=== PATIENT | male | born 1935 | race Caucasian/White ===

== ENCOUNTER → 2023-10-11 12:25 | Outpatient (REF) | payer MEDICARE, BC, SELFPAY ==
[2023-10-11 15:11] LABS: % Basophils 0.6 % (0-2); % Eosinophils 2.5 % (0-6); % Immature Granulocytes 0.2 % (0-0.5); % Lymphocytes 8.3 % (20.5-51.1); % Monocytes 12.5 % (1.7-9.3); % Neutrophils 75.9 % (42.2-75.2); Absolute Eosinophils 0.1 10^3/uL (0-0.7); Absolute Lymphocytes 0.4 10^3/uL (1.2-3.4); Absolute Monocytes 0.6 10^3/uL (0.1-0.6); Absolute Neutrophils 3.6 10^3/uL (1.4-6.5); Hematocrit 31.1 % (39.0-52.0); Hemoglobin 10.9 g/dL (13.0-18.0); Mean Corpuscular Hgb 35.3 pg (27.0-31.0); Mean Corpuscular Volume 100.6 fL (80.0-94.0); Mean Platelet Volume 11.9 fL (7.4-10.4); Nucleated Red Blood Cells % 0 % (-); Platelet Count 124 10^3/uL (130-400); Red Blood Cell Count 3.09 10^6/uL (4.70-6.10); Red Cell Dist. Width 13.4 % (11.5-14.5); White Blood Cell Count 4.8 10^3/uL (4.8-10.8)
[2023-10-11 15:14] LABS: ALT (SGPT) 13 U/L (0-50); AST (SGOT) 27 U/L (17-59); Albumin 3.6 g/dl (3.5-5.0); Alkaline Phosphatase 109 U/L (38-126); Blood Urea Nitrogen 24 mg/dl (9-20); Calcium 8.8 mg/dl (8.4-10.2); Carbon Dioxide 29 mmol/L (22-30); Chloride 92 mmol/L (98-107); Glucose 90 mg/dl (70-99); Potassium 4.7 mmol/L (3.5-5.1); Sodium 126 mmol/L (135-145); Total Bilirubin 0.6 mg/dl (0.2-1.3); Total Protein 5.7 g/dl (6.3-8.2); eGFR > 60.00
[2023-10-11 15:23] LABS: NT-proBNP 1290 pg/ml
[2023-10-11 15:28] LABS: FSH 6.9 mIU/ml (1.55-9.74); Prolactin 12.4 ng/ml (3.7-17.9)
[2023-10-11 16:19] LABS: Folate > 20.0 ng/ml (2.76-20); Vitamin B12 847 pg/ml (239-931)
[2023-10-14 01:50] LABS: % Free Testosterone 0.9 % (1.6-2.9); Free Testosterone 36 pg/mL (47-244); Sex Hormone Binding Globulin 96 nmol/L (19-76); Total Testosterone 403 ng/dL (300-720)
== END ==
LOC: HWLAB 12:25
PROVIDERS: ATTENDING PHYSICIAN Internal Medicine Geriatric Medicine
DX: R05.3 Chronic cough (principal); R51.9 Headache, unspecified; Z95.0 Presence of cardiac pacemaker; I34.0 Nonrheumatic mitral (valve) insufficiency; F41.9 Anxiety disorder, unspecified; C91.10 Chronic lymphocytic leukemia of B-cell type not having achieved remission; K21.9 Gastro-esophageal reflux disease without esophagitis; Z13.89 Encounter for screening for other disorder; J90 Pleural effusion, not elsewhere classified
CPT/HCPCS: 36415; 80053; 82607; 82746; 83001; 83002; 83880; 84146; 84270; 84402; 84403; 85025

== ENCOUNTER → 2023-10-21 13:12 | Outpatient (REF) | payer MEDICARE, BC, SELFPAY | LOC: RAD 13:12 | PROVIDERS: ATTENDING PHYSICIAN Internal Medicine Geriatric Medicine | DX: R05.3 Chronic cough (principal); R51.9 Headache, unspecified; Z95.0 Presence of cardiac pacemaker; I34.0 Nonrheumatic mitral (valve) insufficiency; F41.9 Anxiety disorder, unspecified; C91.10 Chronic lymphocytic leukemia of B-cell type not having achieved remission; K21.9 Gastro-esophageal reflux disease without esophagitis; Z13.89 Encounter for screening for other disorder; J90 Pleural effusion, not elsewhere classified | CPT/HCPCS: 76604 ==

== ENCOUNTER → 2023-10-26 08:09 | Outpatient (REF) | payer MEDICARE, BC, SELFPAY ==
[2023-10-26 10:41] LABS: Blood Urea Nitrogen 19 mg/dl (9-20); Calcium 8.8 mg/dl (8.4-10.2); Carbon Dioxide 32 mmol/L (22-30); Chloride 97 mmol/L (98-107); Glucose 84 mg/dl (70-99); Potassium 4.2 mmol/L (3.5-5.1); Sodium 130 mmol/L (135-145); eGFR > 60.00
== END ==
LOC: REG 08:09
PROVIDERS: ATTENDING PHYSICIAN Internal Medicine Geriatric Medicine
DX: E87.1 Hypo-osmolality and hyponatremia (principal)
CPT/HCPCS: 36415; 80048

== ENCOUNTER → 2023-11-04 08:00 | Outpatient (REF) | payer MEDICARE, BC, SELFPAY ==
[2023-11-04 09:29] LABS: Osmolality Urine 412 mOsm/kg (300-900)
[2023-11-04 09:33] LABS: Osmolality Serum 274 mOsm/kg (275-300)
[2023-11-04 09:35] LABS: Urine Sodium 76 mmol/L (30-90)
[2023-11-04 09:41] LABS: Blood Urea Nitrogen 19 mg/dl (9-20); Calcium 8.7 mg/dl (8.4-10.2); Carbon Dioxide 32 mmol/L (22-30); Chloride 93 mmol/L (98-107); Glucose 89 mg/dl (70-99); Potassium 4.3 mmol/L (3.5-5.1); Sodium 125 mmol/L (135-145); eGFR > 60.00
== END ==
LOC: REG 08:00
PROVIDERS: ATTENDING PHYSICIAN Internal Medicine Geriatric Medicine
DX: E87.1 Hypo-osmolality and hyponatremia (principal)
CPT/HCPCS: 36415; 80048; 83930; 83935; 84300

== ENCOUNTER → 2023-11-18 11:34 | Outpatient (REF) | payer MEDICARE, BC, SELFPAY | LOC: HWRAD 11:34 | PROVIDERS: ATTENDING PHYSICIAN Otolaryngology Plastic Surgery within the Head & Neck; FAMILY PHYSICIAN Internal Medicine Geriatric Medicine | DX: H60.501 Unspecified acute noninfective otitis externa, right ear (principal) | CPT/HCPCS: 70480 ==

== ENCOUNTER → 2023-11-21 08:31 | Outpatient (REF) | payer MEDICARE, BC, SELFPAY ==
[2023-11-21 10:55] LABS: Blood Urea Nitrogen 21 mg/dl (9-20); Calcium 8.6 mg/dl (8.4-10.2); Carbon Dioxide 31 mmol/L (22-30); Chloride 94 mmol/L (98-107); Glucose 90 mg/dl (70-99); Potassium 4.4 mmol/L (3.5-5.1); Sodium 131 mmol/L (135-145); eGFR > 60.00
== END ==
LOC: REG 08:31
PROVIDERS: ATTENDING PHYSICIAN Internal Medicine Geriatric Medicine
DX: E87.1 Hypo-osmolality and hyponatremia (principal)
CPT/HCPCS: 36415; 80048